=== PATIENT | female | born 1990 | race Caucasian/White ===

== ENCOUNTER → 2019-04-20 07:35 | Observation (INO) ==
[2019-04-20 05:28] LABS: Bilirubin,Urine Negative (Negative); Blood,Urine Negative (Negative); Clarity,Urine Clear (Clear); Color,Urine Yellow (Yellow); Glucose,Urine (UA) Normal (Normal); Ketones,Urine Negative (Negative); Leukocyte Esterase,Urine Negative (Negative); Nitrite,Urine Negative (Negative); PH,Urine 6.5 pH Units (5.0-8.0); Protein,Urine Negative (Neg-Trace); Specific Gravity,Urine 1.008 (1.010-1.025); Urobilinogen,Urine Normal (Normal)
[2019-04-20 05:37] LABS: Amphetamine Screen,Urine Negative ng/mL (Cutoff=1000); Barbiturate Screen,Urine Negative ng/mL (Cutoff=200); Benzodiazepines Screen,Urine Negative ng/mL (Cutoff=200); Cannabinoid Screen,Urine Negative ng/mL (Cutoff = 50); Cocaine Screen,Urine Negative ng/mL (Cutoff= 300); Opiate Screen,Urine Negative ng/mL (Cutoff=300); Phencyclidine Screen,Urine Negative ng/mL (Cutoff=25)
--- NOTE | 2019-04-20 07:01 | OB/GYN Progress Note ---
Date of Encounter: 04/20/19 Time of Encounter: 06:54 - Assessment and Plan (1) 27 weeks gestation of Current Visit: Yes Status: Acute Urinalysis normal Vaginosis panel yeast - Rx given for Terconazole Discharge home with labor precautions Follow up in office with routine care and PRN POC per consult with Dr Cortez (2) Vaginal yeast infection Current Visit: Yes Status: Acute Subjective - Subjective Principal diagnosis: period-like cramping Interval history: Ms Schilling a 27 year old at 26 weeks and 5 days presents to triage with c/o period like cramping that woke her from her sleep early this morning. She states she did have intercourse within the past 48 hours. She denies headaches, vision changes, epigastric pain, leaking of fluid, and vaginal bleeding. She is seen by Dr Srivastava for her care. Antepartum ROS: new complaints, movement normal Objective - Exam FHR: auscultation normal FHR comments: FHTs appropriate for gestation. Baseline 140 with moderate variability and 15 x 15 accels. No contractions per monitor or palpation. Auscultation: bilateral: normal Abdomen: Present: normal appearance, soft, gravid Uterus: Present: normal. Absent: firm, tenderness - Labs Labs: Abnormal lab results Ur Specific [place] 1.008 (1.010-1.025) L 04/20/19 05:12
[2019-04-20 07:16] LABS: Trichomonas DNA Not Detected (Not Detect)
[2019-04-20 07:17] LABS: Candida DNA DETECTED (Not Detect); Gardnerella DNA Not Detected (Not Detect)
== END | disposition home or self-care (01) ==
LOC: 1NENULAB
PROVIDERS: ADMIT Advanced Practice Midwife; ATTEND Advanced Practice Midwife

== ENCOUNTER 2019-06-11 09:01 | Observation (INO) ==
[2019-06-11] MEDS ORDERED: Acetaminophen/Butalbital/CaffeineTABLET PO STA (09:58)
[2019-06-11 10:56] LABS: Basophils # 0.1 K/mcL (0.0-0.2); Basophils % 0.4 %; Bilirubin,Urine Negative (Negative); Blood,Urine Negative (Negative); Clarity,Urine Clear (Clear); Color,Urine Yellow (Yellow); Eosinophils # 0.3 K/mcL (0.0-0.6); Eosinophils % 2.3 %; Glucose,Urine (UA) Normal (Normal); Hematocrit 37.1 % (35.3-44.9); Hemoglobin 12.3 g/dL (11.5-15.4); Immature Granulocytes % 1.6 % (0-4); Ketones,Urine Negative (Negative); Leukocyte Esterase,Urine Small (Negative); Lymphocytes # 2.3 K/mcL (0.6-4.6); Lymphocytes % 15.6 %; Mean Corpuscular HGB Conc 33.2 g/dL (31.6-35.5); Mean Corpuscular Hemoglobin 30.4 pg (28.0-33.3); Mean Corpuscular Volume 91.6 fL (83.0-100.0); Mean Platelet Volume 10.4 fL (9.4-12.4); Monocytes % 6.7 %; Neutrophils # 10.8 K/mcL (1.6-8.9); Nitrite,Urine Negative (Negative); Platelet Count 255 K/mcL (140-400); Protein,Urine Negative (Neg-Trace); Red Blood Count 4.05 M/mcL (3.82-4.97); Red Cell Distribution Width 13.4 % (11.5-14.5); Segmented Neutrophils % 73.4 %; Specific Gravity,Urine 1.018 (1.010-1.025); Urobilinogen,Urine Normal (Normal); White Blood Count 14.8 K/mcL (4.3-11.1)
[2019-06-11 10:58] LABS: Bacteria,Urine None Seen per hpf (None-Few); Hyaline Casts,Urine None Seen per lpf (None-Few); RBC,Urine 0-3 per hpf (0-3); Squamous Epithelial Cell,Urine Many per lpf (None-Few)
[2019-06-11 11:13] LABS: Creatinine,Urine 111 mg/dL; Protein/Creatinine Ratio,Urine 0.16 mg/mg (0.00-0.20)
[2019-06-11 11:14] LABS: Sperm,Urine Present
--- NOTE | 2019-06-11 11:37 | Discharge Summary ---
Date of Encounter: 06/11/19 Time of Encounter: 11:35 - Discharge Diagnosis (1) Headache in Priority: Primary Status: Acute Comments: PIH labs and BPs WNL fioricet given for headache Qualifiers: Trimester: third trimester Qualified Code(s): O26.893 - Other specified related conditions, third trimester; R51 - Headache (2) NST (non-stress test) reactive on surveillance Priority: Secondary Status: Acute Comments: 135 bpm moderate variability +15x15 accels no decels noted. Occasional contractions seen. Cat. 1 tracing - Discharge Medications Prescriptions: No Action Multivit-Min/Iron/Folic Acid/K [Adults Multivitamin Tablet] 1 each PO DAILY Citalopram Hydrobromide [Citalopram HBr] 40 mg PO DAILY Home Medications: Citalopram Hydrobromide [Citalopram HBr] 40 mg PO DAILY 08/09/18 [History] Multivit-Min/Iron/Folic Acid/K [Adults Multivitamin Tablet] 1 each PO DAILY 08/09/18 [History] Allergies/Adverse Reactions: Allergy/AdvReac Type Severity Reaction Status Date / Time Amoxicillin [From Augmentin] Allergy Anaphylaxis Verified 10/24/17 12:28 clavulanic acid Allergy Anaphylaxis Verified 10/24/17 12:28 [From Augmentin] Penicillins Allergy Anaphylaxis Verified 10/24/17 12:28 Erythromycin Base AdvReac Numbness Verified 10/24/17 12:28 Sulfa (Sulfonamide AdvReac Nausea Verified 10/24/17 12:28 Antibiotics) sulfamethoxazole AdvReac Nausea Verified 10/24/17 12:28 [From Bactrim] trimethoprim [From Bactrim] AdvReac Nausea Verified 10/24/17 12:28 Data Procedures and tests throughout hospitalization: Laboratory Tests 06/11/19 06/11/19 06/11/19 09:49 09:49 09:49 WBC 14.8 H RBC 4.05 Hgb 12.3 Hct 37.1 MCV 91.6 MCH 30.4 MCHC 33.2 RDW 13.4 Plt Count 255 MPV 10.4 Immature Gran % 1.6 Seg Neutrophils % 73.4 Lymphocytes % 15.6 Monocytes % 6.7 Eosinophils % 2.3 Basophils % 0.4 Neutrophils # 10.8 H Lymphocytes # 2.3 Monocytes # 1.0 Eosinophils # 0.3 Basophils # 0.1 Urine Color Yellow Urine Clarity Clear Urine pH 6.0 Ur Specific [place] 1.018 Urine Protein Negative Urine Glucose (UA) Normal Urine Ketones Negative Urine Blood Negative Urine Nitrite Negative Urine Bilirubin Negative Urine Urobilinogen Normal Ur Leukocyte Esterase Small H Urine Microscopic RBC 0-3 Urine Microscopic WBC 5-15 H Ur Squamous Epith Cells Many H Urine Bacteria None Seen Hyaline Casts None Seen Urine Sperm Present Ur Culture Indicated? YES A Urine Creatinine 111 Protein/Creatinin Ratio 0.16 Urine Total Protein 18 H Ur Drug Screen Interp See Below Labs on day of discharge: Labs from last 24 hours 06/11/19 06/11/19 06/11/19 09:49 09:49 09:49 WBC 14.8 H RBC 4.05 Hgb 12.3 Hct 37.1 MCV 91.6 MCH 30.4 MCHC 33.2 RDW 13.4 Plt Count 255 MPV 10.4 Immature Gran % 1.6 Seg Neutrophils % 73.4 Lymphocytes % 15.6 Monocytes % 6.7 Eosinophils % 2.3 Basophils % 0.4 Neutrophils # 10.8 H Lymphocytes # 2.3 Monocytes # 1.0 Eosinophils # 0.3 Basophils # 0.1 Urine Color Yellow Urine Clarity Clear Urine pH 6.0 Ur Specific [place] 1.018 Urine Protein Negative Urine Glucose (UA) Normal Urine Ketones Negative Urine Blood Negative Urine Nitrite Negative Urine Bilirubin Negative Urine Urobilinogen Normal Ur Leukocyte Esterase Small H Urine Microscopic RBC 0-3 Urine Microscopic WBC 5-15 H Ur Squamous Epith Cells Many H Urine Bacteria None Seen Hyaline Casts None Seen Urine Sperm Present Ur Culture Indicated? YES A Urine Creatinine 111 Protein/Creatinin Ratio 0.16 Urine Total Protein 18 H Ur Drug Screen Interp See Below Date of admission: 06/11/19 09:01 Primary care physician: Misael Flood CNP Discharging clinician: Heidi Sharp Anticipated date of discharge: 06/11/19 - Patient Status Disposition: Home, Self-Care Condition: Good Functional capacity at discharge: independent ambulation - Discharge Instructions Follow Up With: Misael Flood CNP [Primary Care Provider] - Tammy Srivastava DO [Partnered Physician] - - Diet and Activity Activity: increase activity as tolerated Diet: regular diet Hospital Course VP SALES Hospital course: Patient is a 29 y/o female at 34w1d presented to labor and delivery with complaints of a headache for about 1 week. Patient has taken Tylenol off and on without any relief. She denies LOF, VB or contractions. Denies any new onset of swelling or RUQ pain. Time Attestation: Total time spent providing and/or coordinating discharge services: Time Spent: Less than 30 minutes Exam - Constitutional General appearance IM: A&O X 3, pleasant, answers questions appropriately - Respiratory Respiratory exam: Present: CTAB - Cardiovascular Cardiovascular exam IM: Present: RRR, +S1, +S2 - GI/Abdominal GI/Abdominal exam IM: normal bowel sounds - Extremities Exam Extremities exam IM: Present: full ROM, normal inspection - Neurological Exam Neurological exam: alert, oriented X3, reflexes normal - VTE Reasons for not Prescribing Prophylaxis: Treatment not Indicated - Low risk for VTE
[2019-06-11 11:41] LABS: Amphetamine Screen,Urine Negative ng/mL (Cutoff=1000); Barbiturate Screen,Urine Negative ng/mL (Cutoff=200); Benzodiazepines Screen,Urine Negative ng/mL (Cutoff=200); Cannabinoid Screen,Urine Negative ng/mL (Cutoff = 50); Cocaine Screen,Urine Negative ng/mL (Cutoff= 300); Opiate Screen,Urine Negative ng/mL (Cutoff=300); Phencyclidine Screen,Urine Negative ng/mL (Cutoff=25)
[2019-06-11 11:43] LABS: Alanine Aminotransferase 47 Units/L (7-52); Aspartate Amino Transferase 42 Units/L (13-39); BUN/Creatinine Ratio 16 (6-26); Blood Urea Nitrogen 8 mg/dL (6-20); Lactate Dehydrogenase 174 Units/L (140-271); Uric Acid 3.9 mg/dL (2.3-7.6); eGFR For African Americans > 60 (> 60); eGFR For Non-African Americans > 60 (> 60)
== END 2019-06-11 11:45 | disposition home or self-care (01) ==
LOC: 1NENULAB
PROVIDERS: ADMIT Advanced Practice Midwife; ATTEND Advanced Practice Midwife

== ENCOUNTER → 2019-07-18 12:56 | Observation (INO) ==
[2019-07-18 11:37] LABS: Amphetamine Screen,Urine Negative ng/mL (Cutoff=1000); Barbiturate Screen,Urine Negative ng/mL (Cutoff=200); Benzodiazepines Screen,Urine Negative ng/mL (Cutoff=200); Bilirubin,Urine Small (Negative); Blood,Urine Negative (Negative); Cannabinoid Screen,Urine Negative ng/mL (Cutoff = 50); Clarity,Urine Clear (Clear); Cocaine Screen,Urine Negative ng/mL (Cutoff= 300); Color,Urine Dark Yellow (Yellow); Glucose,Urine (UA) Normal (Normal); Ketones,Urine Trace mg/dL (Negative); Leukocyte Esterase,Urine Small (Negative); Nitrite,Urine Negative (Negative); Opiate Screen,Urine Negative ng/mL (Cutoff=300); Phencyclidine Screen,Urine Negative ng/mL (Cutoff=25); Protein,Urine 30 mg/dL (Neg-Trace); Specific Gravity,Urine > 1.030 (1.010-1.025); Urobilinogen,Urine Normal (Normal)
[2019-07-18 11:40] LABS: Bacteria,Urine None Seen per hpf (None-Few); Hyaline Casts,Urine Few per lpf (None-Few); RBC,Urine 0-3 per hpf (0-3); Squamous Epithelial Cell,Urine Many per lpf (None-Few)
[2019-07-18 12:07] LABS: Amorphous Sediment,Urine Few (Few); Mucus,Urine Many (Few)
[~2019-07-18 12:56] MED LIST: Ondansetron ODT 4 MG TAB.RAPDIS SL ONE
== END | disposition home or self-care (01) ==
LOC: 1NENULAB
PROVIDERS: ADMIT Advanced Practice Midwife; ATTEND Advanced Practice Midwife

== ENCOUNTER 2019-07-20 08:00 | Inpatient (IN) ==
[2019-07-20] MEDS ORDERED: Ondansetron 4 MG/2 ML VIAL IVP PRN ×2 (09:07→21:47)
[2019-07-20] MEDS ORDERED: Metoclopramide 10 MG/2 ML VIAL IVP PRN (09:07)
[2019-07-20] MEDS ORDERED: *HR* Nalbuphine 10 MG/ML AMPUL IVP PRN (09:07)
[2019-07-20] MEDS ORDERED: Famotidine 20 MG/2 ML VIAL IVP PRN (09:07)
[2019-07-20] MEDS ORDERED: Naloxone 0.4 MG/ML INJ IVP PRN (09:07)
[2019-07-20] MEDS ORDERED: Lidocaine 1% 20 ML MDV INFILT PRN (09:07)
[2019-07-20] MEDS ORDERED: Ringers Solution, Lactated 1,000 ML IVC SCH (09:15)
[2019-07-20] MEDS ORDERED: miSOPROStol 25 MCG TABLET PO PRN (09:26)
[2019-07-20 09:47] LABS: Basophils % 0.3 %; Eosinophils # 0.1 K/mcL (0.0-0.6); Eosinophils % 1.2 %; Hematocrit 37.2 % (35.3-44.9); Hemoglobin 12.2 g/dL (11.5-15.4); Lymphocytes # 2.3 K/mcL (0.6-4.6); Mean Corpuscular HGB Conc 32.8 g/dL (31.6-35.5); Mean Corpuscular Hemoglobin 29.5 pg (28.0-33.3); Mean Corpuscular Volume 90.1 fL (83.0-100.0); Mean Platelet Volume 10.9 fL (9.4-12.4); Monocytes # 0.8 K/mcL (0.0-1.3); Monocytes % 6.8 %; Neutrophils # 8.6 K/mcL (1.6-8.9); Platelet Count 235 K/mcL (140-400); Red Blood Count 4.13 M/mcL (3.82-4.97); Red Cell Distribution Width 13.2 % (11.5-14.5); Segmented Neutrophils % 71.7 %
[2019-07-20] MEDS ORDERED: Clindamycin 900 MG/50 ML 900 MG/50 ML IV.SOLN IVPB SCH ×2 (09:56→16:00)
[2019-07-20] MEDS ORDERED: Epidural Premix (fent/bupiv) 110 ML EP SCH (10:00)
[2019-07-20] MEDS ORDERED: Epidural Premix (fent/bupiv) 110 ML EP ONE (10:04)
[2019-07-20 10:26] LABS: Amphetamine Screen,Urine Negative ng/mL (Cutoff=1000); Barbiturate Screen,Urine Negative ng/mL (Cutoff=200); Benzodiazepines Screen,Urine Negative ng/mL (Cutoff=200); Cannabinoid Screen,Urine Negative ng/mL (Cutoff = 50); Cocaine Screen,Urine Negative ng/mL (Cutoff= 300); Opiate Screen,Urine Negative ng/mL (Cutoff=300); Phencyclidine Screen,Urine Negative ng/mL (Cutoff=25)
[2019-07-20] MEDS ORDERED: EPHEDrine 50 MG/ML VIAL ONE (10:44)
[2019-07-20] MEDS ORDERED: *HR* Phenylephrine 10 MG/ML VIAL ONE (10:45)
[2019-07-20] MEDS ORDERED: FLU Vac QV 19-20 (6Month+)/PF 0.5 ML SYRINGE IM ONE (11:05)
[2019-07-20] MEDS ORDERED: Terbutaline 1 MG/ML VIAL SQ ONE (12:34)
[2019-07-20] MEDS ORDERED: 0.9 % Sodium Chloride 1,000 ML ONE (12:38)
[2019-07-20] MEDS ORDERED: Oxytocin 20 units/ LR 1000 mL 20 UNIT/1,000 ML BAG IVC ONE (16:27)
[2019-07-20] MEDS ORDERED: Oxytocin 20 units/ LR 1000 mL 20 UNIT/1,000 ML BAG IVC SCH (20:00)
[2019-07-20] MEDS ORDERED: Measles/Mumps/Rubella Vacc 0.5 ML VIAL SQ PRN (20:00)
[2019-07-20] MEDS ORDERED: Acetaminophen 325 MG TABLET PO PRN (20:00)
[2019-07-20] MEDS: Ibuprofen 600 MG TABLET PO PRN (21:44)
[2019-07-21] MEDS: Ibuprofen 600 MG TABLET PO PRN ×3 (03:16→15:34)
[2019-07-21 07:50] VITALS: BP 104/70
[2019-07-21 08:37] LABS: Basophils % 0.2 %; Eosinophils # 0.1 K/mcL (0.0-0.6); Eosinophils % 0.9 %; Hematocrit 36.3 % (35.3-44.9); Hemoglobin 11.8 g/dL (11.5-15.4); Immature Granulocytes % 0.6 % (0-4); Lymphocytes # 2.4 K/mcL (0.6-4.6); Lymphocytes % 15.9 %; Mean Corpuscular HGB Conc 32.5 g/dL (31.6-35.5); Mean Corpuscular Hemoglobin 30.3 pg (28.0-33.3); Mean Corpuscular Volume 93.1 fL (83.0-100.0); Mean Platelet Volume 10.7 fL (9.4-12.4); Monocytes # 1.1 K/mcL (0.0-1.3); Monocytes % 7.2 %; Neutrophils # 11.4 K/mcL (1.6-8.9); Platelet Count 243 K/mcL (140-400); Red Cell Distribution Width 13.5 % (11.5-14.5); Segmented Neutrophils % 75.2 %; White Blood Count 15.2 K/mcL (4.3-11.1)
[2019-07-21] MEDS ORDERED: Lanolin 7 G OINT...G. TP PRN (08:44)
[2019-07-21] MEDS ORDERED: Prenatal Vit/FA 1 EACH TABLET PO SCH (09:00)
[2019-07-21] MEDS ORDERED: FLU Vac QV 19-20 (6Month+)/PF 0.5 ML SYRINGE IM ONE (12:21)
== END 2019-07-21 18:22 | disposition home or self-care (01) | DRG 560 ==
LOC: 1NENULAB 08:34 → 1NENUOBS 19:59
PROVIDERS: ADMIT Obstetrics & Gynecology; ATTEND Obstetrics & Gynecology